=== PATIENT | female | born 1950 | race Caucasian/White ===

== ENCOUNTER 2018-07-29 21:10 | Emergency (ER) | payer MEDICARE ==
[~2018-07-29] VITALS: Ht 160 cm; Wt 79.5 kg
[2018-07-29 22:41] VITALS: BP 148/86
[2018-07-30] MEDS ORDERED: ibuprofen 200mg tablet PO ONE
== END 2018-07-30 00:56 | disposition home or self-care (01) ==
LOC: ER 21:11
DX: S49.91XA Unspecified injury of right shoulder and upper arm, initial encounter (principal); M25.562 Pain in left knee; M79.672 Pain in left foot; R42 Dizziness and giddiness; Z88.0 Allergy status to penicillin; Z88.5 Allergy status to narcotic agent; Z98.51 Tubal ligation status; W18.09XA Striking against other object with subsequent fall, initial encounter; Y93.89 Activity, other specified; Y92.89 Other specified places as the place of occurrence of the external cause; Y99.8 Other external cause status
CPT/HCPCS: 73030; 73080; 73560; 73630; 99283